=== PATIENT | female | born 1995 | race Two or more races ===

== ENCOUNTER 2018-12-28 20:11 | Emergency (ER) | payer OTHER ==
[~2018-12-28] VITALS: Ht 160 cm; Wt 54.0 kg
[2018-12-28] MEDS ORDERED: HYDROCODONE/ACETAMINOPHEN 5/325MG TABLET PO ONE (21:30)
[2018-12-28] MEDS ORDERED: TETANUS, DIPHTHERIA, PERTUSSIS VAC/PF 0.5ML (>7YR OLD) IM ONE (23:00)
[2018-12-28] MEDS ORDERED: BACITRACIN ZINC OINT UDPKT TOP ONE (23:00)
[2018-12-28] MEDS ORDERED: LIDOCAINE HCL/PF 1% 10 MG/ML 5ML VIAL IJ ONE (23:00)
[2018-12-28 23:35] VITALS: BP 109/70
== END 2018-12-28 23:54 | disposition home or self-care (01) ==
LOC: ER 20:11
DX: S61.012A Laceration without foreign body of left thumb without damage to nail, initial encounter (principal); W25.XXXA Contact with sharp glass, initial encounter; Y93.89 Activity, other specified; Y92.018 Other place in single-family (private) house as the place of occurrence of the external cause
CPT/HCPCS: 12002; 73130; 81025; 90471; 90715; 99283; J3490

== ENCOUNTER 2019-01-08 14:19 | Emergency (ER) | payer OTHER ==
[~2019-01-08] VITALS: Ht 154.9 cm; Wt 66.5 kg
[2019-01-08 16:46] VITALS: BP 110/77
== END 2019-01-08 16:50 | disposition home or self-care (01) ==
LOC: ER 14:19
DX: Z48.02 Encounter for removal of sutures (principal)
CPT/HCPCS: 99283